=== PATIENT | male | born 1970 | race Caucasian/White ===

== ENCOUNTER 2021-03-13 19:06 | Emergency (ER) | payer OTHER ==
[~2021-03-13] VITALS: Ht 182.9 cm; Wt 72.6 kg
[2021-03-13] MEDS ORDERED: ONDANSETRON ODT8 MG PO (21:55)
--- NOTE | 2021-03-16 07:32 | EKG ---
[facility] [address] [facility] [place] [address] Signed Sinus rhythm with premature atrial complexes Otherwise normal ECG No previous ECGs available Confirmed by YVETTE GASPAR MD ([id number] on 03/16/2021 7:32:36 AM Electronically Signed By: YVETTE GASPAR MD 03/16/21 0732 PATIENT NAME: CONSTANTIN VILLAR Electrocardiogram DATE OF : 72 PHYSICIAN: YVETTE GASPAR MD REPORT #: [id number] REPORT IS CONFIDENTIAL AND NOT TO BE RELEASED WITHOUT AUTHORIZATION
== END 2021-03-13 22:18 | disposition home or self-care (01) ==
LOC: ED 19:06
DX: K29.00 Acute gastritis without bleeding (principal); B34.9 Viral infection, unspecified; Z20.822 Contact with and (suspected) exposure to COVID-19
CPT/HCPCS: 80053; 81001; 83690; 84484; 85025; 93005; 93010; 96374; 99283-25; C9803; J2405; U0003